=== PATIENT | female | born 1995 | race Two or more races ===

== ENCOUNTER 2020-07-29 21:24 | Emergency (ER) | payer SELFPAY ==
[~2020-07-29] VITALS: Ht 160 cm; Wt 62.1 kg
[2020-07-29] MEDS ORDERED: LORazepam 2MG/ML-1ML VIAL IV ONE (22:15)
[2020-07-29] MEDS ORDERED: HYDROmorphone HCL 2 MG/ML VL IV ONE (22:45)
[2020-07-29 23:04] LABS: Basophils # (auto) 0.1 10 ^3/uL (0-0.2); Basophils % (auto) 0.4 % (0.0-2.0); Eosinophils # (auto) 0.2 10 ^3/uL (0-0.8); Eosinophils % (auto) 1.1 % (0.0-7.0); Hemoglobin 9.3 g/dL (12.2-16.2); Lymphocytes % (auto) 13.8 % (10.0-50.0); Mean Corpuscular Hemoglobin 25.2 pg (28.0-32.0); Mean Corpuscular Volume 78.7 fL (80.0-100.0); Monocytes # (auto) 0.7 10 ^3/uL (0-1.3); Monocytes % (auto) 4.8 % (0.0-12.0); Neutrophils # (auto) 11.9 10 ^3/uL (1.6-8.6); Neutrophils % (auto) 79.9 % (37.0-80.0); Platelet Count (auto) 410 10^3/uL (140-450); Red Blood Cells 3.69 10^6/uL (4.0-5.20); Red Cell Distribution Width 14.4 % (11.8-14.3); White Blood Cell 14.9 10^3/uL (4.4-10.8)
[2020-07-29 23:13] LABS: INR 1.01 (0.9-1.15)
[2020-07-29 23:19] LABS: Calcium 8.3 mg/dL (8.5-10.1); Potassium 3.9 mmol/L (3.5-5.1)
[2020-07-29 23:22] LABS: Albumin 3.2 g/dL (3.4-5.0); BUN/Creatinine Ratio 37.1; Magnesium 2.4 mg/dL (1.6-2.6)
[2020-07-29 23:24] LABS: Bilirubin, Total 1.3 mg/dL (0.2-1.0); Total Protein 6.6 g/dL (6.4-8.2)
[2020-07-30] MEDS ORDERED: IOHEXOL 300 MG/ML 100ML BOTTLE IJ ONE ×2 (00:37→00:40)
[2020-07-30 02:09] LABS: Alcohol, Urine < 3.0 mg/dL (0-10); Amphetamine Screen, Urine POSITIVE (NEGATIVE); Barbiturate Scree,Urine NEGATIVE (NEGATIVE); Benzodiazephine Screen, Urine NEGATIVE (NEGATIVE); Cannabinoid Screen, Urine POSITIVE (NEGATIVE); Cocaine Screen, Urine NEGATIVE (NEGATIVE); Opiate Scree,Urine NEGATIVE (NEGATIVE); Phencyclidine Screen, Urine NEGATIVE (NEGATIVE)
[2020-07-30 02:24] LABS: Urine Bacteria FEW /hpf (None Seen); Urine Blood 3+ /uL (Negative); Urine Hyaline Cast FEW /lpf (0 - 2); Urine Specific Gravity 1.036 (1.001-1.035); Urine WBC 5 /hpf (0 - 5)
[2020-07-30] MEDS ORDERED: SODIUM CHLORIDE 0.9% 1,000 ML IV ONE (02:30)
[2020-07-30 03:07] VITALS: BP 128/64
== END 2020-07-30 03:20 | disposition short-term general hospital (02) ==
LOC: EDBD 21:24 → ER 21:24
DX: S92.902B Unspecified fracture of left foot, initial encounter for open fracture (principal); Z20.822 Contact with and (suspected) exposure to COVID-19; V09.9XXA Pedestrian injured in unspecified transport accident, initial encounter; Y93.01 Activity, walking, marching and hiking; Y92.89 Other specified places as the place of occurrence of the external cause; Y99.8 Other external cause status
CPT/HCPCS: 36415; 71260; 73630; 74177; 80053; 80307; 81001; 83735; 85025; 85610; 86850; 86900; 86901; 87426; 96361; 96374; 96375; 99285; C9803; J1170; J2060; J7030; Q9967; U0003